=== PATIENT | male | born 1935 | race Caucasian/White ===

== ENCOUNTER 2020-06-17 13:37 | Emergency (ER) | payer OTHER ==
[~2020-06-17 13:37] MED LIST: ARICEPT 5MG TABL5 MG PO; ASPIRIN EC81 MG PO; CARDIZEM CD120 MG PO; DULCOLAX5 M1 PO; ELIQUIS2.5 MG PO; HCTZ12.5 MG PO; HYDRALAZINE25 MG PO; LASIX40 MG PO; LINZESS145 MCG PO; NEURONTIN100 MG PO; NEURONTIN400 MG PO; NEXIUM40 MG PO; NORCO 5-325 TA1 EACH PO; NORVASC2.5 MG PO; PEPCID AC20 MG PO; POTASSIUM CHLO20 ME2 PO; PRINIVIL20 MG PO; PROVENTIL HFA6.7 GM INH; TOPROL XL 25MG25 MG PO
[2020-06-17 15:04] LABS: BASOPHIL 1.1 % (0-2); EOSINOPHIL 6.2 % (0-7); HCT 43.8 % (42.0-52.0); HGB 14.2 g/dl (13.2-18.0); LYMPHOCYTE 30.5 % (15-48); MCH 32.5 pg (25.0-31.0); MCHC 32.4 g/dL (32.0-36.0); MCV 100.2 fL (78.0-100.0); MONOCYTE 9.4 % (0-12); MPV 11.3 fL (6.0-9.5); NEUTROPHIL 52.6 % (41-80); NRBC 0; PLT 180 K/uL (150-400); RBC 4.37 M/uL (4.70-6.00); RDW 12.5 % (11.5-14.0); WBC 4.5 K/uL (4.0-10.5)
[2020-06-17 15:18] LABS: INR 1.12 (0.9-1.2); PROTHROMBIN TIME 13.7 SECONDS (11.4-13.6); PTT 31.4 SECONDS (22.2-34.7)
[2020-06-17 15:24] LABS: ALBUMIN 3.3 g/dL (3.4-5.0); BILIRUBIN - TOTAL 0.2 mg/dL (0.2-1.0); BUN/CREAT RATIO (CALC) 28.1 RATIO; CREATININE 0.89 mg/dL (0.67-1.17); GLOBULIN (CALCULATION) 3.2 g/dL; POTASSIUM 4.4 mmol/L (3.5-5.1); TOTAL PROTEIN 6.5 g/dL (6.4-8.2)
[2020-06-17 15:39] LABS: CKMB 2.7 ng/mL (0.0-3.6)
== END 2020-06-17 17:30 | disposition home or self-care (01) ==
LOC: FER 13:37
PROVIDERS: Emergency Medicine
DX: R00.2 Palpitations (principal); I10 Essential (primary) hypertension; I49.3 Ventricular premature depolarization; Z95.0 Presence of cardiac pacemaker; Z20.822 Contact with and (suspected) exposure to COVID-19
CPT/HCPCS: 36415; 71045; 80053; 82553; 83880; 84484; 85025; 85610; 85730; 93005; U0002

== ENCOUNTER 2020-07-20 11:36 | Emergency (ER) | payer OTHER ==
[2020-07-20 13:26] LABS: BASOPHIL 0.9 % (0-2); EOSINOPHIL 5.4 % (0-7); HCT 42.4 % (42.0-52.0); HGB 14.1 g/dl (13.2-18.0); LYMPHOCYTE 34.5 % (15-48); MCH 32.9 pg (25.0-31.0); MCHC 33.3 g/dL (32.0-36.0); MCV 98.8 fL (78.0-100.0); MONOCYTE 11.9 % (0-12); MPV 10.7 fL (6.0-9.5); NEUTROPHIL 47.1 % (41-80); NRBC 0; PLT 180 K/uL (150-400); RBC 4.29 M/uL (4.70-6.00); RDW 12.7 % (11.5-14.0); WBC 4.4 K/uL (4.0-10.5)
[2020-07-20 13:46] LABS: ALBUMIN 3.5 g/dL (3.4-5.0); BILIRUBIN - TOTAL 0.4 mg/dL (0.2-1.0); BUN/CREAT RATIO (CALC) 21.1 RATIO; CREATININE 0.95 mg/dL (0.67-1.17); GLOBULIN (CALCULATION) 2.6 g/dL; POTASSIUM 4.3 mmol/L (3.5-5.1); TOTAL PROTEIN 6.1 g/dL (6.4-8.2)
== END 2020-07-20 15:00 | disposition home or self-care (01) ==
LOC: FER 11:36
PROVIDERS: Emergency Medicine
DX: R63.4 Abnormal weight loss (principal); F03.90 Unspecified dementia, unspecified severity, without behavioral disturbance, psychotic disturbance, mood disturbance, and anxiety; R10.9 Unspecified abdominal pain; R11.2 Nausea with vomiting, unspecified; R63.0 Anorexia; Z87.19 Personal history of other diseases of the digestive system; Z90.49 Acquired absence of other specified parts of digestive tract
CPT/HCPCS: 36415; 80053; 83690; 84484; 85025; 93005